=== PATIENT | male | born 1970 ===

== ENCOUNTER 2021-09-07 07:54 | Day surgery (SDC) | payer BC ==
[~2021-09-07] VITALS: Ht 182.9 cm; Wt 105.4 kg
[~2021-09-07 07:54] MED LIST: OXYACE7.5T PO
[2021-09-07] MEDS ORDERED: LOSA25 (08:06)
== END 2021-09-07 09:48 | disposition home or self-care (01) ==
LOC: ORSCSDS 07:54
PROVIDERS: Surgery
PROC: 0DBN8ZX Excision of Sigmoid Colon, Via Natural or Artificial Opening Endoscopic, Diagnostic (ICD-10-PCS; principal; 2021-09-07 09:15)
DX: Z12.11 Encounter for screening for malignant neoplasm of colon (principal); K63.5 Polyp of colon; Z80.0 Family history of malignant neoplasm of digestive organs; E78.5 Hyperlipidemia, unspecified; I10 Essential (primary) hypertension; Z79.899 Other long term (current) drug therapy; Z79.82 Long term (current) use of aspirin; Z87.891 Personal history of nicotine dependence
CPT/HCPCS: 88305; J2704; J7120